=== PATIENT | male | born 1935 | race Caucasian/White ===

== ENCOUNTER 2017-12-13 09:26 | Inpatient (IN) | payer MEDICARE, BC ==
[2017-12-13] VITALS (7 sets, daily range): BP systolic 126–173; BP diastolic 58–83; PULSE 59–72; RESP 18–20; TEMP 97.4–98.3; O2SAT 92–95
[~2017-12-13] VITALS: Ht 170.2 cm; Wt 70.0 kg
[~2017-12-13 09:26] MED LIST: AMLO5TAB2 PO; CARB25TA9 PO; GLIP5TAB8 PO; HYDR25TA5 PO; LISI40TA PO; METO100T PO; PRAZ1CAP PO
[2017-12-13] MEDS ORDERED: ATOR80TA45 PO (09:46)
[2017-12-13 10:16] LABS: AUTOMATED NEUTROPHIL # 4.7 TH/MM3 (1.8-7.7); BASOPHIL % 0.3 % (0.0-2.0); EOSINOPHIL # 0.1 TH/MM3 (0-0.4); HEMATOCRIT 39.3 % (39.0-51.0); HEMOGLOBIN 13.1 GM/DL (13.0-17.0); LYMPH % 14.4 % (9.0-44.0); LYMPHOCYTE # 0.9 TH/MM3 (1.0-4.8); MEAN CELL VOLUME 90.5 FL (80.0-100.0); MEAN CORPUSCULAR HEMOGLOBIN 30.2 PG (27.0-34.0); MEAN CORPUSCULAR HGB CONC 33.4 % (32.0-36.0); MEAN PLATELET VOLUME 8.1 FL (7.0-11.0); MONO % 10.1 % (0.0-8.0); MONOCYTE # 0.6 TH/MM3 (0-0.9); NEUT % 74.2 % (16.0-70.0); PLATELET COUNT 347 TH/MM3 (150-450); RED BLOOD COUNT 4.34 MIL/MM3 (4.50-5.90); RED CELL DISTRIBUTION WIDTH 15.1 % (11.6-17.2); WHITE BLOOD COUNT 6.3 TH/MM3 (4.0-11.0)
[2017-12-13 10:21] LABS: INTERNATIONAL NORMALIZED RATIO 1.1 RATIO; PROTHROMBIN TIME - PATIENT 10.9 SEC (9.8-11.6)
[2017-12-13] MEDS ORDERED: ceFAZolin 2 GM PREMIX 50 ML IV SCH (10:30)
[2017-12-13 10:48] LABS: CALCIUM 9.2 MG/DL (8.5-10.1); CREATININE 1.86 MG/DL (0.60-1.30)
[2017-12-13] MEDS ORDERED: SENNOSIDES 8.6 MG TAB PO PRN (11:00)
[2017-12-13] MEDS ORDERED: LACTULOSE SYRUP 20 GM/30 ML CUP PO PRN (11:00)
[2017-12-13] MEDS ORDERED: MAGNESIUM HYDROXIDE SUSP 30 ML CUP PO PRN (11:00)
[2017-12-13] MEDS ORDERED: BISACODYL 10 MG SUPP RECTAL PRN (11:00)
[2017-12-13] MEDS ORDERED: SODIUM CHLORIDE 0.9% FLUSH 10 ML FLUSH IV FLUSH PRN (11:00)
[2017-12-13] MEDS ORDERED: MIDAZOLAM HCL 2 MG/2 ML VIAL ONE (12:43)
[2017-12-13] MEDS ORDERED: cloNIDine HCL 0.1 MG TAB PO PRN (13:45)
[2017-12-13] MEDS ORDERED: ACETAMINOPHEN/HYDROcodone 325 MG/10 MG TAB PO PRN (13:45)
[2017-12-13] MEDS ORDERED: ACETAMINOPHEN 325 MG TAB PO PRN (13:45)
[2017-12-13] MEDS ORDERED: ONDANSETRON HCL 4 MG/2 ML VIAL IV PUSH PRN (13:45)
--- NOTE | 2017-12-13 13:46 | PD.RAD ---
Post Procedure Progress Note Pre Procedure Diagnosis: (1) NPH (normal pressure hydrocephalus) (2) Lumbar stenosis with neurogenic claudication Post Procedure Diagnosis: (1) NPH (normal pressure hydrocephalus) (2) Lumbar stenosis with neurogenic claudication Procedure Date: Dec 13, 2017 Supervising Radiologist: Brock Calvin JR Proceduralist/Assist: Rambo Sanders, RT(R), Thi Barnes, RT(R) Anesthesia: Conscious Sedation Plan of Activity Patient to Unit: ROPU Patient Condition: Good See PACS Report for procedural detail/treatment Spinal Procedure Lumbar Drain L2-L3 Fluid Description: Clear Findings: Lumbar drain access to central canal at L2-3. Unable to get tube to course cephalad. Placed tip of tube at S1. Sutured tube in place. Plan To floor following ROPU recovery. Drain titration per neurosurgery. Jr. Nikunj,Brock Don MD Dec 13, 2017 13:46
--- NOTE | 2017-12-13 14:09 | RADRPT ---
EXAM DATE/TIME: 12/13/2017 12:39 [place] COMPARISON: No previous studies available for comparison. INDICATIONS : Patient with gait disturbance and possible normal pressure hydrocephalus in need of lumbar drain. MEDICAL HISTORY : HTN, Diabetes, Parkinson's disease, HLD, Kidney disease SURGIAL HISTORY : Colonoscopy, CABG, Coronary stent, Nephrectomy ENCOUNTER: Initial ACUITY: 7 - 11 months PAIN SCORE: 0/10 LUMBAR PUNCTURE TIME: 1318 hours FLUORO TIME: 5.3 minutes IMAGE SERIES: 0 SEDATION TIME: 15 minutes LEVEL: Tip of lumbar drain was placed at S1 MEDICATION(S): 1.) 1.5 mg midazolam (Versed) IV 2.) 75 mcg fentanyl (Sublimaze) IV Prophylactic antibiotics were administered with appropriate pre-procedure timing. Vancomycin within 2 hrs of procedure, Ancef (or alternative) within 1 hr of procedure. DEVICE(S): 1.) 5 Russian lumbar drain catheter PROCEDURE : 1. Fluoroscopically guided lumbar drain placement. 2. Conscious sedation with continuous EKG and oximetry monitoring. The risks, benefits and alternatives to the procedure were explained and verbal and written consent w as obtained. The site was prepped in sterile fashion. Full sterile technique was used, including ca p, mask, sterile gloves and gown and a large sterile sheet. Hand hygiene and 2% chlorhexidine and/or betadine/alcohol prep was utilized per protocol for cutaneous antisepsis. The skin and subcutaneous tissues were infiltrated with local anesthetic solution. Initial attempt at access was at L3-L4 via a left sublaminar approach. I was unable to gain access to the thecal sac secondary to hypertrophic degenerative changes. With fluoroscopic guidance the lumbar thecal sac was punctured with a 14 gauge Touhy needle at L2-L3 and a lumbar drain was placed . Was u nable to get the catheter to course cephalad within the thecal space likely due to central canal narr owing secondary to degenerative disc disease. The catheter would only course inferiorly and therefore the tip was positioned at the S1 level. The catheter was sutured in place. CSF was identified return ing from the catheter at the termination of the procedure. Conscious sedation was performed with the prescribed dosages and duration as above in the presence of an independent trained radiology nurse to assist in the monitoring of the patient. EKG and oximetry remained stable throughout the procedure. The patient tolerated the procedure well and there were n o complications. The patient was sent to post anesthesia recovery in stable condition. CONCLUSION: Uncomplicated lumbar drain placement as above. Brock Calvin Jr., MD on December 13, 2017 at 14:03 Board Certified Radiologist. This report was verified electronically.
[2017-12-13] MEDS: CARBIDOPA/LEVODOPA 25 MG/100 MG TAB PO SCH ×3 (15:46→21:30)
[2017-12-13] MEDS: SODIUM CHLOR 0.9% 1000 ML INJ 1,000 ML IV SCH (15:47)
[2017-12-13] MEDS: METOPROLOL TARTRATE 100 MG TAB PO SCH (21:30)
[2017-12-13] MEDS: SODIUM CHLORIDE 0.9% FLUSH 10 ML FLUSH IV FLUSH SCH (21:30)
[2017-12-13] MEDS: DOCUSATE SODIUM 50 MG/SENNA 8.6 MG TAB PO SCH (21:31)
[2017-12-13] MEDS: PRAZOSIN HCL 1 MG CAP PO SCH (21:31)
[2017-12-13] MEDS: amLODIPine BESYLATE 5 MG TAB PO SCH (21:31)
[2017-12-14] VITALS (7 sets, daily range): BP systolic 141–156; BP diastolic 64–70; PULSE 49–64; RESP 18–20; TEMP 97.5–98.1; O2SAT 94–95
--- NOTE | 2017-12-14 08:21 | PD.CONS ---
HPI Service [facility] Hospitalists Consult Requested By Neurosurgery Reason for Consult Medical management Primary Care Physician Unknown Diagnoses: (1) Parkinson disease (2) NPH (normal pressure hydrocephalus) (3) Lumbar stenosis with neurogenic claudication History of Present Illness Mr. Vela is a pleasant 82-year-old male with a history of coronary artery disease status post CABG, diabetes, hypertension, Parkinson's disease who underwent spinal drain placement on 12/13/2017 and subsequently admitted to the hospital. Since April 2017 patient has been having various symptoms including difficulty with bowel movement and urination. At this time of this interview, patient denies any chest pain, shortness of breath, fever or chills. Denies any abdominal pain, nausea vomiting. Hospitalist service was consulted for medical management. Review of Systems Except as stated in HPI: all other systems reviewed are Neg Past Family Social History Allergies: Coded Allergies: No Known Allergies (Verified Allergy, Unknown, 12/13/17) Past Medical History Coronary artery disease status post CABG in 2003 Diabetes mellitus Hypertension Glaucoma Possible normal pressure hydrocephalus Parkinson's disease Past Surgical History CABG in 2003 Hernia repair Nephrectomy Cataract surgery Reported Medications Current Medications Medications (Trade) Dose Ordered Sig/Margoth Route Start Time Stop Time Status Last Admin Cefazolin Sodium/ Dextrose 50 ml @ 100 mls/hr [employer] IV 12/13/17 10:30 12/16/17 10:29 12/13/17 13:49 (NS Flush) 2 ml UNSCH PRN IV FLUSH 12/13/17 11:00 (NS Flush) 2 ml BID IV FLUSH 12/13/17 21:00 12/13/17 21:30 (Celia-Colace) 1 tab BID PO 12/13/17 21:00 12/14/17 09:02 (Milk Of Magnesia Liq) 30 ml Q12H PRN PO 12/13/17 11:00 (Senokot) 17.2 mg Q12H PRN PO 12/13/17 11:00 (Dulcolax Supp) 10 mg DAILY PRN RECTAL 12/13/17 11:00 (Lactulose Liq) 30 ml DAILY PRN PO 12/13/17 11:00 (Minipress) 3 mg HS PO 12/13/17 21:00 12/13/17 21:31 (Lopressor) 100 mg Q12HR PO 2/14/18 21:00 12/14/17 09:03 (Microzide) 12.5 mg DAILY PO 12/14/17 09:00 12/14/17 09:02 (Glucotrol) 5 mg DAILYAC PO 12/14/17 08:00 12/14/17 09:02 (Sinemet 25-100 Mg) 1 tab QID PO 12/13/17 13:00 12/14/17 12:59 (Norvasc) 5 mg BID PO 12/13/17 21:00 12/14/17 09:03 Sodium Chloride 1,000 ml @ 100 mls/hr Q10H IV 12/13/17 14:00 12/13/17 15:47 (Protonix) 40 mg DAILY PO 12/14/17 09:00 12/14/17 09:03 (Zofran Inj) 4 mg Q6H PRN IV PUSH 12/13/17 13:45 (Vincent 10-325 Mg) 1 tab Q4H PRN PO 12/13/17 13:45 (Catapres) 0.1 mg Q6H PRN PO 12/13/17 13:45 12/13/17 16:07 (Tylenol) 650 mg Q4H PRN PO 12/13/17 13:45 Family History Mother had cancer. Cousin and aunt with Parkinson's disease. Social History Patient denies using tobacco or illicit drugs. Physical Exam Vital Signs Vital Signs Date Time Temp Pulse Resp B/P (MAP) Pulse Ox O2 Delivery O2 Flow Rate FiO2 12/14/17 07:59 95 21 12/14/17 04:00 98.1 52 18 151/69 (96) 94 12/14/17 00:00 97.5 49 18 141/64 (89) 94 12/13/17 20:00 97.9 59 18 149/66 (93) 95 12/13/17 16:00 97.4 70 18 173/74 (107) 94 12/13/17 14:55 64 18 136/64 (88) 95 12/13/17 14:25 67 18 152/75 (100) 95 12/13/17 13:55 65 18 150/83 (105) 95 12/13/17 13:40 98.3 65 18 131/58 (82) 92 12/13/17 09:54 94 Room Air 12/13/17 09:44 97.7 72 20 126/66 (95) 94 Physical Exam GENERAL: This is a well-nourished, well-developed patient, in no apparent distress. SKIN: No rashes, ecchymoses or lesions. Warm and dry. HEAD: Atraumatic. Normocephalic. No temporal or scalp tenderness. EYES: Pupils equal round and reactive. No injection or drainage. ENT: Nose without bleeding, purulent drainage or septal hematoma. Airway patent. NECK: Trachea midline. No lymphadenopathy. Supple, nontender, no meningeal signs. CARDIOVASCULAR: Regular rate and rhythm without murmurs, gallops, or rubs. No JVD. RESPIRATORY: Clear to auscultation. Breath sounds equal bilaterally. No wheezes , rales, or rhonchi. GASTROINTESTINAL: Abdomen soft, non-tender, nondistended. No guarding. MUSCULOSKELETAL: Extremities without clubbing, cyanosis, or edema. NEUROLOGICAL: Awake and alert. Cranial nerves II through XII intact. No focal neurological deficits. Normal speech. Spinal drain in place. Laboratory Laboratory Tests Test 12/13/17 10:00 White Blood Count 6.3 Red Blood Count 4.34 Hemoglobin 13.1 Hematocrit 39.3 Mean Corpuscular Volume 90.5 Mean Corpuscular Hemoglobin 30.2 Mean Corpuscular Hemoglobin Concent 33.4 Red Cell Distribution Width 15.1 Platelet Count 347 Mean Platelet Volume 8.1 Neutrophils (%) (Auto) 74.2 Lymphocytes (%) (Auto) 14.4 Monocytes (%) (Auto) 10.1 Eosinophils (%) (Auto) 1.0 Basophils (%) (Auto) 0.3 Neutrophils # (Auto) 4.7 Lymphocytes # (Auto) 0.9 Monocytes # (Auto) 0.6 Eosinophils # (Auto) 0.1 Basophils # (Auto) 0.0 CBC Comment DIFF FINAL Differential Comment Prothrombin Time 10.9 Prothromb Time International Ratio 1.1 Activated Partial Thromboplast Time 27.0 Blood Urea Nitrogen 32 Creatinine 1.86 Random Glucose 148 Calcium Level 9.2 Sodium Level 138 Potassium Level 3.9 Chloride Level 106 Carbon Dioxide Level 24.0 Anion Gap 8 Estimat Glomerular Filtration Rate 35 Result Diagram: 12/13/17 1000 12/13/17 1000 Imaging Last Impressions Lumbar Puncture Fluoroscopy 12/13/17 0000 Signed Impressions: Service Date/Time: Wednesday, December 13, 2017 12:39 - CONCLUSION: Uncomplicated lumbar drain placement as above. Brock Calvin Jr., MD Assessment and Plan Problem List: (1) NPH (normal pressure hydrocephalus) ICD Code: G91.2 - (Idiopathic) normal pressure hydrocephalus (2) Lumbar stenosis with neurogenic claudication ICD Code: M48.062 - Spinal stenosis, lumbar region with neurogenic claudication (3) Parkinson disease ICD Code: G20 - Parkinson's disease (4) Diabetes mellitus ICD Code: E11.9 - Type 2 diabetes mellitus without complications (5) HTN (hypertension) ICD Code: I10 - Essential (primary) hypertension Assessment and Plan Mr. Vela is a pleasant 82-year-old male with a history of hypertension, diabetes mellitus, CAD status post CABG, possible NPH who underwent spinal drain placement on 12/13/2017 and subsequently admitted to the hospital. Hospitalist service was consulted for medical management. - Possible normal pressure hydrocephalus - Neurosurgery is following. Possible drain discontinuation today. Discharged per neurosurgery. - Parkinson's disease - Continue carbidopa levodopa 25-100 4 times a day. - Diabetes mellitus - Continue glipizide 5 mg by mouth daily. Add sliding scale insulin while in the hospital. Goal BG 140-180. - Hypertension - CAD s/p CABG - Continue amlodipine 5 mg twice a day (home medication) - Patient also takes lisinopril 40 mg by mouth daily at home. - Continue HCTZ 12.5 mg by mouth daily. - Metoprolol tartrate 100 mg by mouth every 12 hours. We'll reduce metoprolol to 50 mg every 12 hours. Patient's heart rate has been in the upper 40s to low 50s. - CKD stage III - Creatinine in 2014 was 1.40. currently 1.86. Probably a progression of CKD. - Avoid Nephrotoxins. Patient should follow up with nephrology in the outpatient setting if he does not already. Full code. SCDs. Thank you for the consult. We'll continue to follow this patient with you. Bill Purvis DO Dec 14, 2017 8:21 am
[2017-12-14] MEDS: SODIUM CHLORIDE 0.9% FLUSH 10 ML FLUSH IV FLUSH SCH ×2 (09:00→21:26)
[2017-12-14] MEDS: HYDROCHLOROTHIAZIDE 12.5 MG CAP PO SCH (09:02)
[2017-12-14] MEDS: DOCUSATE SODIUM 50 MG/SENNA 8.6 MG TAB PO SCH ×2 (09:02→21:26)
[2017-12-14] MEDS: glipiZIDE 5 MG TAB PO SCH (09:02)
[2017-12-14] MEDS: METOPROLOL TARTRATE 100 MG TAB PO SCH (09:03)
[2017-12-14] MEDS: amLODIPine BESYLATE 5 MG TAB PO SCH ×2 (09:03→21:25)
[2017-12-14] MEDS: PANTOPRAZOLE SOD 40 MG DELAYED RELEASE TAB PO SCH (09:03)
[2017-12-14] MEDS: CARBIDOPA/LEVODOPA 25 MG/100 MG TAB PO SCH ×4 (09:03→21:25)
[2017-12-14] MEDS: SODIUM CHLOR 0.9% 1000 ML INJ 1,000 ML IV SCH ×3 (10:00→20:00)
--- NOTE | 2017-12-14 10:17 | HHI.NSPN ---
(Tyler Kirk) History Chief Complaint: Gait improved, but memory and incontinence remain the same. (Tyler Kirk) Interval History 12/14/17: Pt awake and alert. Pts at bedside state his walking has improved but memory and incontinence remain. No headaches. No radiculopathy in LEs. Pts lumbar spinal drain, draining clear CSF. (Tyler Kirk) Review of Systems General: Negative for: fever, chills, insomnia Respiratory: Negative for: shortness of breath, cough, sputum Cardiovascular: Negative for: chest pain Gastrointestinal: Negative for: nausea, vomitting, diarrhea, constipation ( Tyler Kirk) Exam Results Vital Signs Date Time Temp Pulse Resp B/P (MAP) Pulse Ox O2 Delivery O2 Flow Rate FiO2 12/14/17 08:47 98.0 60 20 156/70 (98) 95 12/14/17 07:59 21 12/13/17 09:54 Room Air Intake and Output 12/14/17 12/14/17 12/15/17 08:00 16:00 00:00 Output Total 80 ml Balance -80 ml (Tyler Kirk) Physical Examination General: Pt awake and alert. Eyes: Pupils equal, sclera anicteric. Resp: CTA bilaterally Heart: NSR no murmurs Abd: Soft positive bs Skin: no cyanosis or erythema Muscle Moves all 4 extremities with good strength. Reportedly gait improved. Neuro: Pt awake and alert. Follows commands well. Speech clear and appropriate. Pupils equal. Pt states hearing decreased bilaterally seems to be intermittently. (Tyler Kirk) Lab, Micro, Other Results Last Impressions Lumbar Puncture Fluoroscopy 12/13/17 0000 Signed Impressions: Service Date/Time: Wednesday, December 13, 2017 12:39 - CONCLUSION: Uncomplicated lumbar drain placement as above. Brock Calvin Jr., MD (Tyler Kirk) Medical Decision Making Impression and Plan A: 82 y/o M s/p lumbar spinal drain placement for evaluation of possible normal pressure hydrocephalus. Pt has improvement in his gait after drain placed. Difficulty with memory and incontinence remain. P: Continue with lumbar spinal drain and possibly remove it today after PT and d/C home per pts request. (Tyler Kirk) Attending Statement The exam, history, and the medical decision-making described in the above note were completed with the assistance of the mid-level provider. I reviewed and agree with the findings presented. I attest that I had a [id number] encounter with the patient on the same day, and personally performed and documented my assessment and findings in the medical record. (Jaime Taylor MD) Tyler Kirk Dec 14, 2017 10:17 Jaime Taylor MD Dec 14, 2017 15:26
[2017-12-14] MEDS ORDERED: DEXTROSE 50% IN WATER 50 ML VIAL(D50) IV PUSH PRN (13:45)
[2017-12-14] MEDS ORDERED: GLUCAGON 1 MG/ML VIAL OTHER PRN (13:45)
[2017-12-14] MEDS ORDERED: METO-338 PO (13:55)
[2017-12-14] MEDS: INSULIN ASPART SUPPLEMENTAL SCALE SQ SCH ×2 (17:00→21:25)
[2017-12-14] MEDS: METOPROLOL TARTRATE 50 MG TAB PO SCH (21:25)
[2017-12-14] MEDS: PRAZOSIN HCL 1 MG CAP PO SCH (21:26)
[2017-12-15] VITALS: BP 138/68; PULSE 66; RESP 20; TEMP 98.1; O2SAT 94
[2017-12-15 03:30] VITALS: BP 108/60; PULSE 62; RESP 18; TEMP 98; O2SAT 94
[2017-12-15] MEDS: SODIUM CHLOR 0.9% 1000 ML INJ 1,000 ML IV SCH (04:32)
[2017-12-15 08:02] VITALS: BP 150/71; PULSE 61; RESP 20; TEMP 97.8; O2SAT 92
[2017-12-15] MEDS: PANTOPRAZOLE SOD 40 MG DELAYED RELEASE TAB PO SCH (08:23)
[2017-12-15] MEDS: CARBIDOPA/LEVODOPA 25 MG/100 MG TAB PO SCH ×2 (08:24→12:59)
[2017-12-15] MEDS: HYDROCHLOROTHIAZIDE 12.5 MG CAP PO SCH (08:24)
[2017-12-15] MEDS: METOPROLOL TARTRATE 50 MG TAB PO SCH (08:24)
[2017-12-15] MEDS: glipiZIDE 5 MG TAB PO SCH (08:24)
[2017-12-15] MEDS: amLODIPine BESYLATE 5 MG TAB PO SCH (08:24)
--- NOTE | 2017-12-15 10:05 | HHI.PR ---
Subjective Remarks Has no complaints. Denies any pain. Denies any nausea, vomiting, headaches. Eager to go home today. Objective Vitals Vital Signs Date Time Temp Pulse Resp B/P (MAP) Pulse Ox O2 Delivery O2 Flow Rate FiO2 12/15/17 08:02 97.8 61 20 150/71 (97) 92 12/15/17 03:30 98.0 62 18 108/60 (76) 94 12/15/17 00:00 98.1 66 20 138/68 (91) 94 12/14/17 20:00 97.8 64 18 145/65 (91) 94 12/14/17 16:07 97.6 60 18 146/66 (92) 94 12/14/17 11:34 97.5 53 18 145/66 (92) 95 I/O 12/14/17 12/14/17 12/14/17 12/15/17 12/15/17 12/15/17 07:00 15:00 23:00 07:00 15:00 23:00 Intake Total 720 ml 500 ml 600 ml Output Total 80 ml 300 ml 881 ml Balance -80 ml 720 ml 200 ml -281 ml Intake Oral 720 ml 500 ml 600 ml Output Urine Total 300 ml 800 ml Stool Total 1 ml Drainage Total 80 ml 80 ml # Voids 3 1 # Bowel Movements 0 0 0 Result Diagram: 12/13/17 1000 12/13/17 1000 Imaging Last Impressions Lumbar Puncture Fluoroscopy 12/13/17 0000 Signed Impressions: Service Date/Time: Wednesday, December 13, 2017 12:39 - CONCLUSION: Uncomplicated lumbar drain placement as above. Brock Calvin Jr., MD Objective Remarks GENERAL: This is a well-nourished, well-developed patient, laying on his right side. EYES: Extraocular motion intact. ENT: Airway patent. NECK: Trachea midline. CARDIOVASCULAR: Regular rate and rhythm without murmurs RESPIRATORY: Clear to auscultation. Breath sounds equal bilaterally. No wheezes GASTROINTESTINAL: Abdomen soft, non-tender, nondistended. No guarding. MUSCULOSKELETAL: Extremities without edema. NEUROLOGICAL: Awake and alert. Moves extremities. Normal speech A/P Problem List: (1) NPH (normal pressure hydrocephalus) ICD Code: G91.2 - (Idiopathic) normal pressure hydrocephalus (2) Lumbar stenosis with neurogenic claudication ICD Code: M48.062 - Spinal stenosis, lumbar region with neurogenic claudication (3) Parkinson disease ICD Code: G20 - Parkinson's disease (4) Diabetes mellitus ICD Code: E11.9 - Type 2 diabetes mellitus without complications (5) HTN (hypertension) ICD Code: I10 - Essential (primary) hypertension Assessment and Plan Mr. Vela is a pleasant 82-year-old male with a history of hypertension, diabetes mellitus, CAD status post CABG, possible NPH who underwent spinal drain placement on 12/13/2017 and subsequently admitted to the hospital. Hospitalist service was consulted for medical management. - Possible normal pressure hydrocephalus - Neurosurgery is following. Possible drain discontinuation this morning and per RN patient is to remain laying flat for a 6 hours. Discharged per neurosurgery. - Parkinson's disease - Continue carbidopa levodopa 25-100 4 times a day. - Diabetes mellitus - Continue glipizide 5 mg by mouth daily. on sliding scale insulin while in the hospital. Goal BG 140-180. - Hypertension - CAD s/p CABG - Continue amlodipine 5 mg twice a day (home medication) - Patient also takes lisinopril 40 mg by mouth daily at home. - Continue HCTZ 12.5 mg by mouth daily. - Metoprolol tartrate decreased to 50 mg every 12 hours due to bradycardia which has not resolved. New prescription in chart. - CKD stage III - Creatinine in 2015 was 1.40. currently 1.86. Probably a progression of CKD. - Avoid Nephrotoxins. Patient should follow up with nephrology in the outpatient setting if he does not already. Full code. SCDs. Discharge Planning Per primary team. Medically, patient is doing well. Lisa Marc MD Dec 15, 2017 10:05
--- NOTE | 2017-12-15 11:07 | HHI.FF ---
Face to Face Verification Diagnosis: (1) NPH (normal pressure hydrocephalus) Physical Therapy Order: Evaluate and Treat Home Health Nursing Order: Nursing assessment with vital signs I have seen patient Alexandru Vela on 12/15/17. My clinical findings support the need for the requested home health care services because: Ltd mobility - disease progression I certify that my clinical findings support that this patient is homebound because: Unsteady gait/balance Arian Alvardao MD Dec 15, 2017 11:07
[2017-12-15 11:25] VITALS: BP 142/60; PULSE 56; RESP 20; TEMP 97.6; O2SAT 94
--- NOTE | 2017-12-15 12:03 | HHI.NSPN ---
History Chief Complaint: Evaluation for NPH Interval History Lumbar drain removed this AM. Denies any problems Denies headache or back pain Exam Results Vital Signs Date Time Temp Pulse Resp B/P (MAP) Pulse Ox O2 Delivery O2 Flow Rate FiO2 12/15/17 11:25 97.6 56 20 142/60 (87) 94 12/14/17 07:59 21 12/13/17 09:54 Room Air Intake and Output 12/15/17 12/15/17 12/16/17 08:00 16:00 00:00 Intake Total 600 ml Output Total 881 ml Balance -281 ml Physical Examination . Neuro: Pt awake and alert. Follows commands well. Speech clear and appropriate. Pupils equal. Pt states hearing decreased bilaterally seems to be intermittently. Moves all extremities well. Medical Decision Making Impression and Plan Patient doing well post drainage Discharge today. Discussed with patient, and nurses Home health ordered Total Minutes: 25 Arian Alvarado MD Dec 15, 2017 12:02
== END 2017-12-15 14:56 | disposition home or self-care (01) | DRG 57 ==
LOC: HROP 09:26 → HRIP 09:29 → HROP 10:56 → N05A 10:57
PROVIDERS: ADMIT Neurological Surgery; ATTEND Neurological Surgery
PROC: 009U30Z Drainage of Spinal Canal with Drainage Device, Percutaneous Approach (ICD-10-PCS; principal; 2017-12-13)
PROC: 00PUX0Z Removal of Drainage Device from Spinal Canal, External Approach (ICD-10-PCS; 2017-12-15)
DX: G91.2 (Idiopathic) normal pressure hydrocephalus (principal); E11.22 Type 2 diabetes mellitus with diabetic chronic kidney disease; G20 Parkinson's disease; N18.3 Chronic kidney disease, stage 3 (moderate); R32 Unspecified urinary incontinence; M48.062 Spinal stenosis, lumbar region with neurogenic claudication; I12.9 Hypertensive chronic kidney disease with stage 1 through stage 4 chronic kidney disease, or unspecified chronic kidney disease; I25.10 Atherosclerotic heart disease of native coronary artery without angina pectoris; M51.36 Other intervertebral disc degeneration, lumbar region; H40.9 Unspecified glaucoma; Z79.84 Long term (current) use of oral hypoglycemic drugs; Z90.5 Acquired absence of kidney; Z95.1 Presence of aortocoronary bypass graft
CPT/HCPCS: 63741; 77003; 80048; 82948; 85025; 85610; 85730; 94150; 99152; C1755; J0690; J1815; J2250; J3010; J7030

== ENCOUNTER 2018-03-29 14:57 | Emergency (ER) | payer MEDICARE, BC ==
[~2018-03-29] VITALS: Ht 170.2 cm; Wt 65.1 kg
[~2018-03-29 14:57] MED LIST changes: +ATOR80TA45 PO; -LISI40TA PO; +METO-338 PO; -METO100T PO
[2018-03-29 15:03] VITALS: BP 118/55; PULSE 67; RESP 16; TEMP 98.4; O2SAT 98
--- NOTE | 2018-03-29 15:53 | PD ---
HPI Chief Complaint: Abnormal Results Time Seen by Provider: 15:39 Travel History International Travel<30 days: No Contact w/Intl Traveler<30days: No Traveled to known affect area: No History of Present Illness HPI This 82-year-old male presents because his blood pressure was low at home. He has a physical therapist come to the house and his physical therapist checked his blood pressure was 92/47. He says he is feeling okay. He denies any pain. He has a history of hypertension and is on lisinopril, metoprolol and amlodipine for his blood pressure. He also takes glipizide and Sinemet. He has Parkinson's disease. He has a physical therapist at the home tries to help him get out of his chair. He has had fluctuating blood pressures recently. 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 He has not had any chest pain. There is been no recent fever chills or dysuria. He has been eating okay. He has not had any chest pain PFSH Past Medical History Blood Disorders: No Cancer: Yes (kidney ) Cardiovascular Problems: Yes (htn on meds) High Cholesterol: Yes Diabetes: Yes (type 2) Diminished Hearing: No Endocrine: Yes Glaucoma: Yes Genitourinary: Yes Hepatitis: No Hiatal Hernia: No Hypertension: Yes Immune Disorder: No Implanted Vascular Access Dvce: Yes Musculoskeletal: No Neurologic: Yes (parkinsons ) Psychiatric: No Reproductive: No Respiratory: No Immunizations Current: Yes Thyroid Disease: No Past Surgical History Abdominal Surgery: Yes (HERNIA - AGE 18, nephrectomy) AICD: No Body Medical Devices: SCREWS IN LEG Cardiac Surgery: Yes (TRIPLE BYPASS - 2003; 2 ANGIOPASTY - 1999) Ear Surgery: No Endocrine Surgery: No Eye Surgery: No Genitourinary Surgery: No Gynecologic Surgery: No Joint Replacement: No Oral Surgery: No Pacemaker: No Thoracic Surgery: Yes Other Surgery: Yes (RIGHT CAROTID - 2003) Social History Alcohol Use: Yes (WEEKLY) Tobacco Use: No Substance Use: No Allergies-Medications (Allergen,Severity, Reaction): Coded Allergies: No Known Allergies (Verified Allergy, Unknown, 03/29/18) Reported Meds & Prescriptions Reported Meds & Active Scripts Active Lopressor (Metoprolol Tartrate) 100 Mg Tab 50 Mg PO Q12HR Reported Lisinopril 20 Mg Tab 20 Mg PO DAILY Atorvastatin (Atorvastatin Calcium) 80 Mg Tab 80 Mg PO HS Prazosin (Prazosin HCl) 1 Mg Cap 3 Mg PO HS Hydrochlorothiazide 25 Mg Tab 12.5 Mg PO DAILY Glipizide 5 Mg Tab 5 Mg PO BID Take 30 minutes before a meal Carbidopa-Levodopa 25-100 Mg Tab 2 Tab PO QID Review of Systems General / Constitutional: No: Fever, Chills Eyes: No: Diploplia, Blurred Vision HENT: No: Headaches, Vertigo Cardiovascular: No: Chest Pain or Discomfort, Palpitations Respiratory: No: Cough, Shortness of Breath Gastrointestinal: No: Nausea, Vomiting Genitourinary: No: Urgency, Frequency Musculoskeletal: No: Myalgias, Arthralgias Skin: No Rash, No Itching Neurologic: No: Weakness, Dizziness Psychiatric: No: Anxiety Hematologic/Lymphatic: No: Easy Bruising Physical Exam Narrative GENERAL: Well-developed male SKIN: Focused skin assessment warm/dry. HEAD: Atraumatic. Normocephalic. EYES: Pupils equal and round. No scleral icterus. No injection or drainage. ENT: No nasal bleeding or discharge. Mucous membranes pink and moist. NECK: Trachea midline. No JVD. CARDIOVASCULAR: Regular rate and rhythm. No murmur appreciated. RESPIRATORY: No accessory muscle use. Clear to auscultation. Breath sounds equal bilaterally. GASTROINTESTINAL: Abdomen soft, non-tender, nondistended. Hepatic and splenic margins not palpable. MUSCULOSKELETAL: No obvious deformities. No clubbing. No cyanosis. No edema. NEUROLOGICAL: Awake and alert. No obvious cranial nerve deficits. Motor grossly within normal limits. Normal speech. Slow movements typical of Parkinson's PSYCHIATRIC: Appropriate mood and affect; insight and judgment normal. Data Data Last Documented VS Vital Signs Date Time Temp Pulse Resp B/P (MAP) Pulse Ox O2 Delivery O2 Flow Rate FiO2 03/29/18 16:54 60 16 142/68 (92) 96 03/29/18 15:03 98.4 Orders Orders Electrocardiogram (03/29/18 15:49) Complete Blood Count With Diff (03/29/18 15:49) Comprehensive Metabolic Panel (03/29/18 15:49) Troponin I (03/29/18 15:49) B-Type Natriuretic Peptide (03/29/18 15:49) Urinalysis - C+S If Indicated (5/31/18 15:49) Magnesium (Mg) (03/29/18 15:49) Sodium Chlor 0.9% 1000 Ml Inj (Ns 1000 M (03/29/18 16:00) Labs Laboratory Tests Test 03/29/18 16:25 03/29/18 17:06 White Blood Count 7.4 TH/MM3 Red Blood Count 4.16 MIL/MM3 Hemoglobin 12.7 GM/DL Hematocrit 37.8 % Mean Corpuscular Volume 90.8 FL Mean Corpuscular Hemoglobin 30.5 PG Mean Corpuscular Hemoglobin Concent 33.6 % Red Cell Distribution Width 14.3 % Platelet Count 362 TH/MM3 Mean Platelet Volume 8.5 FL Neutrophils (%) (Auto) 72.6 % Lymphocytes (%) (Auto) 14.0 % Monocytes (%) (Auto) 12.2 % Eosinophils (%) (Auto) 0.7 % Basophils (%) (Auto) 0.5 % Neutrophils # (Auto) 5.4 TH/MM3 Lymphocytes # (Auto) 1.0 TH/MM3 Monocytes # (Auto) 0.9 TH/MM3 Eosinophils # (Auto) 0.1 TH/MM3 Basophils # (Auto) 0.0 TH/MM3 CBC Comment DIFF FINAL Differential Comment Blood Urea Nitrogen 31 MG/DL Creatinine 1.90 MG/DL Random Glucose 85 MG/DL Total Protein 6.6 GM/DL Albumin 3.4 GM/DL Calcium Level 9.1 MG/DL Magnesium Level 2.0 MG/DL Alkaline Phosphatase 61 U/L Aspartate Amino Transf (AST/SGOT) 21 U/L Alanine Aminotransferase (ALT/SGPT) 10 U/L Total Bilirubin 0.7 MG/DL Sodium Level 144 MEQ/L Potassium Level 4.2 MEQ/L Chloride Level 106 MEQ/L Carbon Dioxide Level 28.7 MEQ/L Anion Gap 9 MEQ/L Estimat Glomerular Filtration Rate 34 ML/MIN Troponin I 0.08 NG/ML B-Type Natriuretic Peptide 38 PG/ML [facility] Medical Decision Making Medical Screen Exam Complete: Yes Emergency Medical Condition: Yes Medical Record Reviewed: Yes Differential Diagnosis Differential includes dehydration, excessive medication Narrative Course Patient's blood pressure here has been stable. His BUN is 31 with a creatinine of 1.9. This is higher than usual for him. He will be given some additional IV fluid. His hemoglobin is 12. Troponin is 0.08. His EKG shows normal sinus rhythm and he did not have any chest pain. I suspect the troponin level may be secondary to dehydration. I do not believe the patient is having cardiac ischemia. After fluid bolus of 500 cc the patient will be released Diagnosis Primary Impression: Dehydration Disposition: 01 DISCHARGE HOME Condition: Stable Rambo Weaver MD March 29, 2018 15:53
[2018-03-29] MEDS ORDERED: SODIUM CHLOR 0.9% 1000 ML INJ 1,000 ML IV ONE (16:00)
[2018-03-29] MEDS ORDERED: LISI-515 PO (16:38)
[2018-03-29 16:40] LABS: AUTOMATED NEUTROPHIL # 5.4 TH/MM3 (1.8-7.7); BASOPHIL % 0.5 % (0.0-2.0); EOSINOPHIL # 0.1 TH/MM3 (0-0.4); EOSINOPHIL % 0.7 % (0.0-4.0); HEMATOCRIT 37.8 % (39.0-51.0); HEMOGLOBIN 12.7 GM/DL (13.0-17.0); MEAN CELL VOLUME 90.8 FL (80.0-100.0); MEAN CORPUSCULAR HEMOGLOBIN 30.5 PG (27.0-34.0); MEAN CORPUSCULAR HGB CONC 33.6 % (32.0-36.0); MEAN PLATELET VOLUME 8.5 FL (7.0-11.0); MONO % 12.2 % (0.0-8.0); MONOCYTE # 0.9 TH/MM3 (0-0.9); NEUT % 72.6 % (16.0-70.0); PLATELET COUNT 362 TH/MM3 (150-450); RED BLOOD COUNT 4.16 MIL/MM3 (4.50-5.90); RED CELL DISTRIBUTION WIDTH 14.3 % (11.6-17.2); WHITE BLOOD COUNT 7.4 TH/MM3 (4.0-11.0)
[2018-03-29 16:54] VITALS: BP 142/68; PULSE 60; RESP 16; O2SAT 96
[2018-03-29 16:57] LABS: CHLORIDE 106 MEQ/L (98-107); SODIUM (NA) 144 MEQ/L (136-145)
[2018-03-29 17:02] LABS: ALBUMIN 3.4 GM/DL (3.4-5.0); BICARBONATE 28.7 MEQ/L (21.0-32.0); BLOOD UREA NITROGEN 31 MG/DL (7-18); CALCIUM 9.1 MG/DL (8.5-10.1); GLUCOSE,RANDOM 85 MG/DL (74-106)
[2018-03-29 17:05] LABS: ALT (GPT) 10 U/L (12-78); AST (GOT) 21 U/L (15-37); GLOMERULAR FILTRATION RATE 34 ML/MIN (>89)
[2018-03-29 17:07] LABS: TOTAL BILIRUBIN ADULT 0.7 MG/DL (0.2-1.0); TOTAL PROTEIN 6.6 GM/DL (6.4-8.2)
[2018-03-29 17:08] LABS: ALKALINE PHOSPHATASE 61 U/L (45-117)
[2018-03-29 17:10] LABS: TROPONIN I 0.08 NG/ML (0.02-0.05)
[2018-03-29 17:20] LABS: BILIRUBIN, URINE NEG (NEG); BLOOD, URINE NEG (NEG); GLUCOSE,URINE NEG (NEG); KETONE, URINE NEG (NEG); NITRITE,URINE NEG (NEG); URINE COLOR YELLOW (YELLW/STRAW); URINE LEUKOCYTE ESTERASE NEG (NEG)
[2018-03-29] MEDS ORDERED: SODIUM CHLORID 0.9% 500 ML INJ 500 ML IV ONE (17:30)
[2018-03-29 17:31] LABS: RBC, URINE 0-3 /hpf (0-3); SQUAMOUS EPITHELIAL CELL URINE 0-5 /hpf (0-5)
--- NOTE | 2018-03-30 15:28 | EKG ---
Date Performed: 03/29/2018 Time Performed: 16:28:18 PTAGE: 82 years EKG: Sinus rhythm WITH FIRST DEGREE AV BLOCK WITH OCCASIONAL SUPRAVENTRICULAR PREMATURE COMPLEXES NONSPECIFIC T-WAVE A BNORMALITY ABNORMAL ECG Compared to PREVIOUS TRACING , sinus rate is slower. PREVIOUS TRACIN11/03/2014 16.30 DOCTOR: Henrik Carreon Interpretating Date/Time 03/30/2018 15:27:54
== END 2018-03-29 18:02 | disposition home or self-care (01) ==
LOC: PHED 14:57
DX: E86.0 Dehydration (principal); R94.31 Abnormal electrocardiogram [ECG] [EKG]; I95.9 Hypotension, unspecified; G20 Parkinson's disease; E11.9 Type 2 diabetes mellitus without complications; E78.00 Pure hypercholesterolemia, unspecified; I10 Essential (primary) hypertension; H40.9 Unspecified glaucoma
CPT/HCPCS: 80053; 81001; 83735; 83880; 84484; 85025; 93005; 99284; J7030; J7040